=== PATIENT | female | born 1935 | race Caucasian/White ===

== ENCOUNTER → 2017-09-09 10:54 | Outpatient (CLI) | payer MEDICARE, SELFPAY ==
[2017-09-09 12:20] LABS: Absolute Lymphocyte Count 2.62 X10^3/ul (0.83-4.51); Basophil# 0.04 X10^3/uL; Basophil% 0.6 % (0-1); Eosinophil# 0.09 X10^3/uL; Eosinophils% 1.4 % (0-5); Hematocrit 40.5 % (37-47); Hemoglobin 12.9 g/dl (12.0-15.0); Lymphocyte # 2.62 X10^3/ul (4.0); Lymphocyte % 42.1 % (19-41); Mean Corp Hgb Conc 31.9 g/gl (32-36); Mean Corpuscular Hgb 29.5 pg (27.0-32.0); Mean Corpuscular Volume 92.5 fL (81-99); Mean Platelet Vol. 9.9 fl (6.2-12.0); Monocyte# 0.42 X10^3/uL; Monocyte% 6.7 % (0-10); Neutrophil # 3.04 X10^3/uL (2.7-7.7); Neutrophil % 48.9 % (47-70); Platelet Count 280 K/mm3 (150-450); RBC Distribution Width CV 14.5 % (11.6-14.6); RBC Distribution Width SD 49.1 fl (35.1-43.9); Red Blood Count 4.38 M/mm3 (4.2-5.4); White Blood Count 6.2 K/mm3 (4.4-11.0)
[2017-09-09 12:22] LABS: POSITIVE COUNT NO; POSITIVE DIFFERENTIAL NO; POSITIVE MORPHOLOGY NO
[2017-09-09 12:55] LABS: Vitamin B12 566 pg/mL (211-911)
[2017-09-09 13:02] LABS: Anion Gap 5 (5-15); BUN 13 mg/dL (7-18); BUN/Creat Ratio 24.9 RATIO (10-20); Chloride 104 mmol/L (98-107); Creatinine, Serum 0.52 mg/dL (0.55-1.02); EST Glomerular Filtration Rate 119 mL/min (>60); Est Glom Filt Rate - Afr Amer 145 mL/min (>60); Glucose 111 mg/dL (74-106); Sodium Level 137 mmol/L (136-145); T4 Free Direct 1.17 ng/dL (0.76-1.46)
== END ==
PROVIDERS: Family Provider Family Medicine; PCP Family Medicine; Visit Provider Family Medicine
DX: I10 Essential (primary) hypertension (principal); E03.9 Hypothyroidism, unspecified; R41.3 Other amnesia
CPT/HCPCS: 36415; 80048; 82607; 84439; 84443; 85025

== ENCOUNTER → 2017-09-17 14:39 | Outpatient (CLI) | payer MEDICARE, SELFPAY ==
--- NOTE | 2017-09-17 13:45 | LES_PTH ---
PATIENT: GABI RAMIREZ LOC: [facility] U#:[id number] AGE/SX: 89/F ROOM: RE09/17/[address]: Dr. Clarisse Heaton MD : 1935 BED: DIS: SPEC #: [id number] RECD: 09/18/17 11:48 STATUS: FRANCISCO BENEDICT #: [id number] HAYLEY: 09/17/17 13:[address]: Clarisse Heaton DEPT: SURGICAL PATHOLOGY RECD BY: Zenon Paz ENTERED: 09/18/17 12:46 SP TYPE: Lesion OTHR DR: Dr. Shorty Bauer MD Tissues: A - Skin of back, NOS B - Skin of arm Procedures: Surgery Specimen Level IV HEADER OPERATION: Punch biopsy; shave biopsy PRE-OP DIAGNOSIS: Suspicion of melanoma, changing nevus; cutaneous horn vs wart TISSUE SUBMITTED: A ? Mid upper back lesion, B ? Right posterior upper arm wart MICROSCOPIC DIAGNOSIS A. Mid upper back lesion, biopsy: Solar elastosis. No evidence of malignancy. B. Right posterior upper arm, excision: Fragments of verrucoid keratosis with cutaneous horn. AM:levon 09/19/17 MICROSCOPIC DESCRIPTION Slides are reviewed. GROSS DESCRIPTION A - Received in fixative is one container labeled with the patient's name and designated upper back mole. The specimen consists of an irregular fragment of larkin tissue measuring 0.2 x 0.1 x 0.1 cm. The specimen is submitted in its entirety in one cassette. B - Received in fixative is one container labeled with the patient's name and designated right upper arm. The specimen consists of an irregular fragment of light larkin soft tissue measuring 0.7 x 0.6 x 0.5 cm. The specimen is bisected and totally submitted in one cassette. / AM:levon 09/18/17 TC:5 CPT: 90511 x2
== END ==
PROVIDERS: Family Provider Family Medicine; PCP Family Medicine; Visit Provider Family Medicine
DX: B07.9 Viral wart, unspecified (principal); L98.9 Disorder of the skin and subcutaneous tissue, unspecified
CPT/HCPCS: 88305

== ENCOUNTER → 2018-01-07 14:45 | Outpatient (CLI) | payer MEDICARE, SELFPAY ==
[2018-01-07 17:36] LABS: Absolute Lymphocyte Count 2.78 X10^3/ul (0.83-4.51); Absolute Neutrophil Count 2.5 X10^3/uL (2.0-7.7); Basophil# 0.04 X10^3/uL; Basophil% 0.7 % (0-1); Eosinophil# 0.08 X10^3/uL; Eosinophils% 1.4 % (0-5); Hematocrit 39.4 % (37-47); Hemoglobin 12.5 g/dl (12.0-15.0); Lymphocyte # 2.78 X10^3/ul (4.0); Lymphocyte % 47.5 % (19-41); Mean Corp Hgb Conc 31.7 g/gl (32-36); Mean Corpuscular Hgb 29.7 pg (27.0-32.0); Mean Corpuscular Volume 93.6 fL (81-99); Mean Platelet Vol. 10.3 fl (6.2-12.0); Monocyte# 0.45 X10^3/uL; Monocyte% 7.7 % (0-10); Neutrophil # 2.49 X10^3/uL (2.7-7.7); Neutrophil % 42.5 % (47-70); Platelet Count 245 K/mm3 (150-450); RBC Distribution Width CV 14.3 % (11.6-14.6); RBC Distribution Width SD 49.1 fl (35.1-43.9); Red Blood Count 4.21 M/mm3 (4.2-5.4); White Blood Count 5.9 K/mm3 (4.4-11.0)
[2018-01-07 17:39] LABS: POSITIVE COUNT NO; POSITIVE DIFFERENTIAL NO; POSITIVE MORPHOLOGY NO
[2018-01-07 17:56] LABS: Anion Gap 6 (5-15); BUN 11 mg/dL (7-18); BUN/Creat Ratio 19.2 RATIO (10-20); Calcium,Total 8.8 mg/dL (8.5-10.1); Chloride 103 mmol/L (98-107); Creatinine, Serum 0.57 mg/dL (0.55-1.02); EST Glomerular Filtration Rate 107 mL/min (>60); Est Glom Filt Rate - Afr Amer 130 mL/min (>60); Glucose 95 mg/dL (74-106); Potassium 3.7 mmol/L (3.5-5.1); Sodium Level 138 mmol/L (136-145); Thyroid Stim Hormone (TSH) 1.85 uIU/mL (0.358-3.74)
== END ==
PROVIDERS: Family Provider Family Medicine; PCP Family Medicine; Visit Provider Family Medicine
DX: I95.2 Hypotension due to drugs (principal); E03.9 Hypothyroidism, unspecified; R53.83 Other fatigue
CPT/HCPCS: 36415; 80048; 84443; 85025

== ENCOUNTER → 2018-01-09 08:15 | Outpatient (CLI) | payer MEDICARE, SELFPAY | PROVIDERS: Family Provider Family Medicine; PCP Family Medicine; Visit Provider Family Medicine | DX: M54.5 Low back pain (principal); M48.062 Spinal stenosis, lumbar region with neurogenic claudication; Z87.39 Personal history of other diseases of the musculoskeletal system and connective tissue | CPT/HCPCS: 72110 ==

== ENCOUNTER → 2018-02-21 08:18 | Outpatient (CLI) | payer MEDICARE, SELFPAY ==
--- NOTE | 2018-02-21 08:20 | BI_ITS ---
MAMMOGRAPHY - BILATERAL SCREENING REASON FOR EXAM: Female, 82 years old. Routine annual screening examination. PERTINENT HISTORY: Non-contributory. TECHNIQUE: Digital bilateral breast tim (3D mammographic acquisition) in the CC and MLO projections. 2-D mediolateral oblique (MLO) and craniocaudad (CC) views of both breasts were obtained. CAD: Full Field Digital Mammography with Computer Added Detection was performed. COMPARISON: Comparison is made with prior study dated February 05, 2017 and January 31, 2016. FINDINGS: Breast Composition: There are scattered areas of fibroglandular density. There are no dominant masses or suspicious calcifications. Stable small benign-appearing bilateral axillary lymph nodes. No other significant abnormalities are identified. There has been no significant change since the prior study. BI/SCREENING MAMM (CAD), BILAT IMPRESSION: Stable bilateral screening mammogram. Yearly follow-up mammogram recommended. (A) ASSESSMENT CATEGORY: BIRADS Category 2: Benign. A letter regarding these results will be sent to the patient by the facility within 30 days. Approximately 10% of breast cancers are not detected by mammography. A normal mammogram should not delay biopsy of a clinically suspicious abnormality. [id number] Electronically Signed: Lemuel Martinez MD at 11:05 EDT Tel [phone], Service support ,
== END ==
PROVIDERS: Family Provider Family Medicine; PCP Family Medicine; Referring Provider Family Medicine; Visit Provider Family Medicine
DX: Z12.31 Encounter for screening mammogram for malignant neoplasm of breast (principal)
CPT/HCPCS: 77063; 77067

== ENCOUNTER → 2018-07-14 09:43 | Outpatient (CLI) | payer MEDICARE, SELFPAY ==
[2018-07-14 13:13] LABS: Anion Gap 8 (5-15); BUN 10 mg/dL (7-18); BUN/Creat Ratio 15.2 RATIO (10-20); Calcium,Total 9.1 mg/dL (8.5-10.1); Chloride 105 mmol/L (98-107); Creatinine, Serum 0.66 mg/dL (0.55-1.02); EST Glomerular Filtration Rate 92 mL/min (>60); Est Glom Filt Rate - Afr Amer 111 mL/min (>60); Glucose 101 mg/dL (74-106); Potassium 3.9 mmol/L (3.5-5.1); Sodium Level 140 mmol/L (136-145); T4 Free Direct 1.27 ng/dL (0.76-1.46); Thyroid Stim Hormone (TSH) 1.87 uIU/mL (0.358-3.74)
== END ==
PROVIDERS: Family Provider Family Medicine; PCP Family Medicine; Visit Provider Family Medicine
DX: E03.9 Hypothyroidism, unspecified (principal); I10 Essential (primary) hypertension
CPT/HCPCS: 36415; 80048; 84439; 84443

== ENCOUNTER → 2018-07-29 14:09 | Outpatient (CLI) | payer MEDICARE, SELFPAY ==
--- NOTE | 2018-07-29 14:13 | CT_ITS ---
We are attempting to reach BRIAN QUINN to discuss findings. An addendum with communication details will be sent when the communication is complete. STUDY: CT CHEST/THORAX WITH CONTRAST REASON FOR EXAM: Female, 83 years old. Follow-up nodules. RADIATION DOSAGE (If Supplied By Facility): CTDIvol = ( 9.23 ) mGy, DLP = ( 529.07 ) mGycm TECHNIQUE: Transaxial imaging was performed following intravenous administration of Isovue 300 100 IV. Multiplanar coronal and sagittal images were reformatted. Individualized dose optimization techniques were used for this CT. COMPARISON: CT chest with contrast March 08, 2017. FINDINGS: Right middle lobe nodule has increased in size to 4.0 x 2.4 x 2.9 cm soft tissue mass that remains inseparable from and distorts the anterior medial minor fissure. The medial margin of the mass is also inseparable from the right medial pleural margin/lateral pericardium. The finding is highly worrisome for malignancy. Stable 4 mm mildly irregular nodular density in the anterolateral left upper lobe on series 4 image 33. Small site of fibronodular scarring seen in the posterior periphery of the right lower lobe on series 4 image 60. Minor curvilinear anteromedial right middle lobe scarring also seen on image 62. There is no demonstrated pleural abnormality. Normal heart and pericardium. There are calcifications of the coronary arteries. Normal mediastinum. Normal hilar regions. Normal enhanced pulmonary arteries. There is stable atherosclerotic calcification of the aortic arch, proximal brachiocephalic arteries, and descending thoracic aorta. There are multi-level degenerative changes of the thoracic spine. There is a 13 degree dextroscoliosis centered at T7-8 and a slight compensatory levoscoliosis of the upper thoracic spine. Well-corticated focal invagination of the superior T11 vertebral endplate consistent with benign Schmorl's node. There is a ipbg-zz-ubvuhnwk kyphosis centered at T11. Incidental note of severe degenerative disc disease and reactive osseous sclerosis at L2-3, at the bottom of the field of view. There is a stable moderate-sized to large hiatal hernia comprising the fundus and upper body of the stomach. Marginal enhancement along a stable 1 cm subcapsular lesion in the anterolateral right lobe of liver (series 2 image 99) is consistent with hemangioma. CT/Chest WITH Contrast IMPRESSION: 1. Anteromedial right middle lobe nodule has progressed to a 4 cm soft tissue mass consistent with malignancy. This is inseparable from and distorts the anteromedial minor fissure, and is also inseparable from the medial right pleural margin. 2. There is stable minor scarring in the anterior and posterior right lung base as well as stable 4 mm nodule in the anterolateral left upper lobe. 3. Described vascular calcifications again noted. 4. Stable moderate sized to large hiatal hernia. 5. Stable 1 cm lesion in the anterolateral right lobe liver suggesting hemangioma. 6. Degenerative changes of the spine with mild upper to mid S-shaped scoliosis and mild to moderate lower thoracic kyphosis unchanged. Electronically Signed: Dylan Tong MD at 18:50 EST , Service support ,
== END ==
PROVIDERS: Family Provider Family Medicine; PCP Family Medicine; Referring Provider Family Medicine; Visit Provider Family Medicine
DX: R91.8 Other nonspecific abnormal finding of lung field (principal)
CPT/HCPCS: 71260; Q9967

== ENCOUNTER → 2018-08-05 10:47 | Outpatient (CLI) | payer MEDICARE, SELFPAY ==
[2018-08-05 09:36] VITALS: BMI 27.9
[2018-08-05 11:03] LABS: Absolute Lymphocyte Count 2.73 X10^3/ul (0.83-4.51); Absolute Neutrophil Count 3.9 X10^3/uL (2.0-7.7); Basophil# 0.05 X10^3/uL; Basophil% 0.7 % (0-1); Eosinophil# 0.14 X10^3/uL; Eosinophils% 1.9 % (0-5); Hematocrit 41.5 % (37-47); Hemoglobin 13.2 g/dl (12.0-15.0); Lymphocyte # 2.73 X10^3/ul (4.0); Lymphocyte % 37.3 % (19-41); Mean Corp Hgb Conc 31.8 g/gl (32-36); Mean Corpuscular Hgb 30.1 pg (27.0-32.0); Mean Corpuscular Volume 94.5 fL (81-99); Mean Platelet Vol. 9.7 fl (6.2-12.0); Monocyte# 0.53 X10^3/uL; Monocyte% 7.2 % (0-10); Neutrophil # 3.85 X10^3/uL (2.7-7.7); Neutrophil % 52.6 % (47-70); Platelet Count 272 K/mm3 (150-450); RBC Distribution Width CV 13.7 % (11.6-14.6); RBC Distribution Width SD 47.5 fl (35.1-43.9); Red Blood Count 4.39 M/mm3 (4.2-5.4); White Blood Count 7.3 K/mm3 (4.4-11.0)
[2018-08-05 11:07] LABS: POSITIVE COUNT NO; POSITIVE DIFFERENTIAL NO; POSITIVE MORPHOLOGY NO
[2018-08-05 11:10] LABS: Prothrombin Time (Protime)PT. 13.4 SECONDS (11.7-14.9)
[2018-08-05 11:11] LABS: Partial Thromboplast Time 28.8 Seconds (24.1-36.2)
== END ==
PROVIDERS: Family Provider Family Medicine; PCP Family Medicine; Referring Provider Internal Medicine Critical Care Medicine; Visit Provider Internal Medicine Critical Care Medicine
DX: R91.8 Other nonspecific abnormal finding of lung field (principal)
CPT/HCPCS: 36415; 85025; 85610; 85730

== ENCOUNTER → 2018-08-20 08:53 | Outpatient (CLI) | payer MEDICARE, SELFPAY ==
[2018-08-05 09:36] VITALS: BMI 27.9
[2018-08-20] VITALS (10 sets, daily range): BP systolic 118–170; BP diastolic 47–93; PULSE 74–86; RESP 13–20; TEMP 36.8; O2SAT 95–100; BMI 26.6
--- NOTE | 2018-08-20 | ASPIGT_PTH ---
PATIENT: GABI RAMIREZ LOC: CT U#:[id number] AGE/SX: 89/F ROOM: RE08/20/[address]: Dr. Kee Hyatt MD : 1935 BED: DIS: SPEC #: [id number] RECD: 08/20/18 13:04 STATUS: FRANCISCO ELLISONLuisa #: [id number] HAYLEY: 08/20/18 00:[address]: Kee Hyatt DEPT: SURGICAL PATHOLOGY RECD BY: Herman Baig ENTERED: 08/20/18 13:05 SP TYPE: ASP RAD OTHR DR: Dr. Shorty Bauer MD Tissues: Right lung, NOS Procedures: FNA Specimen Adequacy Special Stain Group II Surgery Specimen Level IV Imprint (control) HEADER OPERATION: CT-guided right lung lesion biopsy PRE-OP DIAGNOSIS: Right lung mass TISSUE SUBMITTED: Right lung MICROSCOPIC DIAGNOSIS Right lung, CT-guided core biopsy: Non-small cell carcinoma, favor squamous cell carcinoma. See comment. SJ:levon 08/21/18 COMMENT The specimen is evaluated at the time of biopsy by Dr. Yeh. Immediate Evaluation = Malignant cells present derived from non-small cell carcinoma. Immunohistochemistry ([id number]) supports the above diagnosis. Molecular studies on the tumor can be performed if clinically indicated. Please notify the laboratory if it is needed. Case has been reviewed in consultation with Dr. Hatch who concurs with the above diagnosis. IDC:AM MICROSCOPIC DESCRIPTION Slides are reviewed. GROSS DESCRIPTION Received in fixative is one container labeled with the patient's name and designated right lung, CT-guided core biopsy. The specimen consists of multiple irregular fragments of larkin soft tissue that in aggregate measure 1 x 0.1 x <0.1 cm. The specimen is totally submitted in one cassette. / JAQUELINE:levon 08/20/18 TC:0 [facility]: [address], [id number] ADDENDUM ADDENDUM ADDENDUM ADDENDUM ADDENDUM ADDENDUM ADDENDUM 02/25/2019 13:31 ADDENDUM 02/25/2019 13:31 ADDENDUM 02/25/2019 13:31 ADDENDUM 02/25/2019 13:31 ADDENDUM 02/25/2019 13:31 PD-L1 (KEYTRUDA) IMMUNOHISTOCHEMISTRY ANALYSIS FROM [facility] INTERPRETATION: High expression Tumor proportion score: 70% Please see complete report in e-chart or EMR for complete details
--- NOTE | 2018-08-20 | IMM_PTH ---
PATIENT: GABI RAMIREZ LOC: CT U#:[id number] AGE/SX: 89/F ROOM: RE08/20/[address]: Dr. Kee Hyatt MD : 1935 BED: DIS: SPEC #: [id number] RECD: 08/21/18 12:42 STATUS: FRANCISCO REQ #: [id number] HAYLEY: 08/20/18 00:[address]: Kee Hyatt DEPT: IMMUNOHISTOCHEMISTRY RECD BY: Poonam Herman ENTERED: 08/21/18 12:45 SP TYPE: IMMUNO OTHR DR: Dr. Shorty Bauer MD Tissues: Lung, NOS Procedures: RCC (add) CK20 (add) CK5-6 (add) CK7 (add) CK8 (add) HEP PAR (add) MAMM (add) MN (add) TTF1 (add) GATA3 (add) P40 (add) ER (initial) PHYSICIAN & INSTITUTION [place] [id number] SPECIMEN INFORMATION: Tissue Source: Right lung mass Clinical Info: Right lug mass Specimen Number: [id number] CPT code: 50931, 51129 x11 METHODOLOGY: Deparaffinized sections of prefer/formalin-fixed tissue or PAP/DQ stained slides are incubated with monoclonal/polyclonal antibodies/oligonucleotide probes. Localization is made via biotin free immunoperoxidase method. Appropriate controls are performed and reacted as expected. Results on target cell population are indicated in the following table: RESULTS: ANTIBODY / CLONE RESULT ER (6F11) negative MN (1E2) negative Mammaglobin (31A5) negative GATA3 (L50-823) negative CK7 (OV-TL12/30) positive CK8 (27azkxN97) positive CK20 (KS20.8) negative TTF-1 (8G7G3/1) negative HepPar (OCh1E5) negative RCC (PN-15) negative CK5-6 (D5 & 1684) positive P40 (BC28) positive These tests were developed and their performance characteristics determined by [facility]. They may not have been cleared or approved by the U.S. Food and Drug Administration. The FDA has determined that such clearance or approval is not necessary. INTERPRETATION: Right lung mass, CT-guided biopsy: Non-small cell carcinoma, favor squamous carcinoma. SJ:levon 08/21/18 Case has been reviewed in consultation with Dr. Hatch who concurs with the above diagnosis. IDC:AM
--- NOTE | 2018-08-20 08:59 | CT_ITS ---
PROCEDURE: CT GUIDED CORE NEEDLE BIOPSY OF A right upper lobe LUNG LESION INDICATION: Female, 83 years old. Mass lesion in the medial aspect of the right upper lobe. PHYSICIAN: Dr. Martinez CONSENT: Written informed consent was obtained having explained the risks, benefits and alternatives in detail with the patient who accepted the risks and agreed to proceed. Laboratory review and clinical assessment was performed. CONSCIOUS SEDATION PROTOCOL: The Drugs used were: 2 mg Versed, IV., and 50 mcg Fentanyl, IV. The sedation time was: 19 minutes. Conscious sedation was started at 10:01 AM and terminated at 10:20 AM. The conscious sedation protocol was independently monitored. RADIATION DOSAGE (If Supplied By Facility): CTDIvol = ( 18.3 ) mGy, DLP = ( 386.79 ) mGycm Individualized dose optimization techniques were used for this CT. TECHNIQUE: The patient was placed in the supine position. A noncontrast CT was performed to localize the lesion in the anterior medial aspect of the right upper lobe . The skin surface was prepped and draped in a sterile fashion. 1% lidocaine was used for local anesthesia. Using CT guidance, a 20-gauge coaxial biopsy device was advanced to the periphery of the lesion. A total of 4 core specimens were obtained. The specimens were placed in a formalin solution. A post procedure CT demonstrated no adverse sequelae or pneumothorax. The patient tolerated the procedure well without adverse event. A negative biopsy does not exclude malignancy. Further imaging or clinical followup based on patient condition and degree of clinical suspicion for malignancy. Suggest rebiopsy, if biopsy results do not match with clinical scenario. CT/Biopsy/Inj or Needle Placement IMPRESSION: 1. CT directed core needle biopsy of the right upper lobe lesion using CT image guidance with image documentation as described. Pathology results are pending. 2. Conscious Sedation protocol utilized with independent monitoring. Electronically Signed: Lemuel Martinez, at 11:30 EDT , Service support ,
[2018-08-20] MEDS: fentaNYL 100 MCG/2 ML Ampul IV (10:01)
[2018-08-20] MEDS: Midazolam 2 MG/2 ML Syringe IV (10:01)
--- NOTE | 2018-08-20 10:27 | RAD_ITS ---
STUDY: X-RAY CHEST REASON FOR EXAM: Female, 83 years old. Immediate post right lung biopsy radiograph. TECHNIQUE: AP inspiration and expiration views. COMPARISON: None. FINDINGS: Immediate postright lung biopsy radiograph. Small right apical pneumothorax. The patient is asymptomatic. RAD/Chest Insp/Exp 2 View IMPRESSION: Small right apical pneumothorax on the immediate postright lung biopsy radiograph. The patient is asymptomatic. Electronically Signed: Lemuel Martinez, at 15:52 EDT , Service support ,
--- NOTE | 2018-08-20 12:40 | RAD_ITS ---
STUDY: X-RAY CHEST REASON FOR EXAM: Female, 83 years old. 2 hour postright lung biopsy. TECHNIQUE: AP inspiration and expiration view. COMPARISON: Comparison is made with prior study done earlier today. FINDINGS: Stable small right apical pneumothorax. The patient is asymptomatic. RAD/Chest Insp/Exp 2 View IMPRESSION: Stable small right apical pneumothorax. The patient is asymptomatic Electronically Signed: Lemuel Martinez, at 15:51 EDT , Service support ,
== END ==
PROVIDERS: Family Provider Family Medicine; PCP Family Medicine; Referring Provider Internal Medicine Critical Care Medicine; Visit Provider Internal Medicine Critical Care Medicine
DX: C34.11 Malignant neoplasm of upper lobe, right bronchus or lung (principal)
CPT/HCPCS: 32405; 71046; 77012; 88172; 88305; 88307; 88313; 88341; 88342; 99156; 99157; J7040

== ENCOUNTER → 2018-08-21 09:51 | Outpatient (CLI) | payer MEDICARE, SELFPAY ==
[2018-08-05 09:36] VITALS: BMI 27.9
[2018-08-20 09:14] VITALS: BMI 26.6
--- NOTE | 2018-08-21 12:04 | PFT ---
INTRODUCTION: The patient is an 83-year-old female that presents for pulmonary function testing secondary to a diagnosis of lung mass. Respiratory therapy reports good patient effort. Bronchodilators were used during testing. INTERPRETATION: Forced expiration spirometry demonstrates the presence of a moderate large airways obstructive ventilatory defect. There was a significant response to aerosolized bronchodilators, based upon change noted in FVC. Spirograms are of relatively poor quality and terminate prior to 6 seconds, likely underestimating FVC. Body plethysmography was performed and reveals an elevated RV to 163% of predicted, indicative of underlying air trapping. Diffusing capacity by single breath CO is within normal limits at 81% of predicted. IMPRESSION: These pulmonary function studies demonstrate the presence of a partially reversible moderate large airways obstructive ventilatory defect with associated air trapping.
== END ==
PROVIDERS: Family Provider Family Medicine; PCP Family Medicine; Referring Provider Internal Medicine Critical Care Medicine; Visit Provider Internal Medicine Critical Care Medicine
DX: R91.8 Other nonspecific abnormal finding of lung field (principal)
CPT/HCPCS: 94060; 94726; 94729

== ENCOUNTER → 2018-09-08 10:13 | Outpatient (CLI) | payer MEDICARE, SELFPAY ==
[2018-08-22 10:28] VITALS: BMI 26.6
--- NOTE | 2018-09-08 11:00 | PET_ITS ---
EXAMINATION: FDG PET CT INDICATIONS: An 83-year-old female with history of carcinoma of the lung presenting for initial staging examination. COMPARISON EXAMINATION: CT of the chest report dated 07/29/18. INDEX LESION SIZE SUV INTERPRETATION Right lower anteromedial hemithorax pulmonary parenchyma, right middle lobe 40.5 mm x 23.6 mm (frame 173) 7.6 Fulfills quantitative criteria for viable neoplasm NON-INDEX LESION SIZE SUV INTERPRETATION Left upper abdomen 1.5 Appears contiguous to splenule visualization TECHNIQUE: Following the intravenous administration of 13.85 mCi of F-18 deoxyglucose via the left forearm, multiplanar image acquisitions of the neck, chest, abdomen and pelvis to level of mid thigh, obtained at one hour post radiopharmaceutical administration contemporaneously interpreted with the current CT of the neck, chest, abdomen and pelvis to level of mid thigh, dated 09/08/[address] of the chest report dated 07/29/18 reveal: SERUM GLUCOSE LEVEL: 119 mg/dl. HEIGHT: 64 inches. WEIGHT: 155 lbs. FINDINGS: 1. Increased glucose metabolism is defined in the right lower anteromedial hemithorax pulmonary parenchyma, right middle lobe generating a calculated maximum standard uptake value is 7.6. The maximal axial diameter of the corresponding parenchymal density-mass on review of CT of the chest dated 09/08/18 is 40.5 mm (transverse) x 23.6 mm (AP). 2. Normal physiologic distribution of the radiopharmaceutical is apparent in the hepatic (3.9) and splenic parenchyma, both renal units, bladder and visualized intestinal tract. There is uniform distribution of the radiopharmaceutical concentration defined in the visualized cerebellar hemispheres and cerebral cortical structures.? Diffuse intestinal tract activity is noted throughout all four quadrants of the abdominal-pelvic retroperitoneum, mesentery consistent with normal physiologic distribution of the radiopharmaceutical. A subtle focus of increased glucose concentration is noted in the left upper abdomen with a calculated maximum standard uptake value of 1.5 and appears to represent a visualized splenule. Enhanced radiopharmaceutical concentration is noted in the anterior neck, laryngeal structure contiguous to the cricopharyngeus musculature most consistent with physiologic distribution of the radiotracer. Pertinent CT findings are as follows. CHEST: Atherosclerotic calcification is defined in the thoracic aorta without evidence of dilatation, aneurysm formation. Coronary arterial calcification is observed. A prominent hiatal hernia is defined. Subcentimeter bilateral axillary soft tissue densities are non-glucose avid. There are no parenchymal densities-nodules defined in the right-left hemithorax demonstrating discernible increased glucose metabolism. ABDOMEN AND PELVIS: Cholelithiasis is defined. Atherosclerotic calcification is defined in the abdominal aorta without evidence of dilatation, aneurysm formation. Pelvic arterial calcification is observed. Right-left inguinal soft tissue densities are ametabolic. Calcification appears evident in the region of the lower pelvis-urinary bladder, which may represent vesiculate calculus. SKELETAL: Degenerative changes defined in the cervical, thoracic and lumbar spine demonstrate no evidence for glucose hypermetabolism. Orthopedic hardware placement is defined in the lower lumbar spine commensurate with spinal fusion operative intervention. PET/PET/CT Tumor Base -Thigh Init IMPRESSION: 1. ABNORMAL EXAMINATION INDICATIVE OF MALIGNANT-VIABLE NEOPLASM. 2. Increased FDG concentration noted in the right lower anteromedial hemithorax pulmonary parenchyma, right middle lobe fulfills quantitative criteria for viable neoplasm. (Randall et al, Annals of Internal Medicine, 138:724, 2003). 3. Facilitated glucose metabolism noted in the left upper abdomen appears to correspond to splenule visualization. 4. No other quantitatively significant hypermetabolic abnormalities are noted. There is no definitive scintigraphic evidence of distant metastatic disease. Electronic Signature Allen De León D.O. Electronically Signed: Allen De León DO at 20:48 EDT Tel , Service support ,
== END ==
PROVIDERS: Family Provider Family Medicine; PCP Family Medicine; Referring Provider Internal Medicine Critical Care Medicine; Visit Provider Internal Medicine Critical Care Medicine
DX: C34.11 Malignant neoplasm of upper lobe, right bronchus or lung (principal)
CPT/HCPCS: 78815; A9552

== ENCOUNTER → 2018-10-23 13:30 | Outpatient (CLI) | payer MEDICARE, SELFPAY ==
[2018-09-16 13:06] VITALS: BMI 29.0
[2018-09-17 09:04] VITALS: BMI 29.7
--- NOTE | 2018-10-23 | IMM_PTH ---
PATIENT: GABI RAMIREZ LOC: [facility] U#:[id number] AGE/SX: 89/F ROOM: RE10/23/[address]: Dr. Kiara Mcrae MD : 1935 BED: DIS: SPEC #: [id number] RECD: 10/24/18 13:11 STATUS: FRANCISCO REQ #: [id number] HALYEY: 10/23/18 00:[address]: Kiara Mcrae DEPT: IMMUNOHISTOCHEMISTRY RECD BY: Poonam Herman ENTERED: 10/24/18 13:21 SP TYPE: IMMUNO OTHR DR: Dr. Shorty Bauer MD Tissues: Vulva, NOS Procedures: NAPSIN A (add) CA-125 (add) CEA (add) CK14 (add) CK19 (add) CK20 (add) CK5-6 (add) CK7 (add) CK8 (add) ALENA (add) HER2 SAUNDRA (add) KI-67 (add) MAMM (add) P16 (add) P53 (add) DE (add) TTF1 (add) Vimentin (add) 34BE12 (add) Pankeratin (add) MELAN-A (add) GATA3 (add) P40 (add) ER (initial) S-100 (add) PHYSICIAN & [place] [id number] SPECIMEN INFORMATION: Tissue Source: Vulva, punch biopsy Clinical Info: Vulvar subcutaneous tumor Specimen Number: [id number] CPT code: 11858, 15526 x24 METHODOLOGY: Deparaffinized sections of prefer/formalin-fixed tissue or PAP/DQ stained slides are incubated with monoclonal/polyclonal antibodies/oligonucleotide probes. Localization is made via biotin free immunoperoxidase method. Appropriate controls are performed and reacted as expected. Results on target cell population are indicated in the following table: RESULTS: ANTIBODY / CLONE RESULT ER (6F11) negative DE (1E2) negative Her-2neu (CB11) negative Mammaglobin (31A5) * GATA3 (L50-823) positive, dim AE1-3 (AE1/AE3/PCK26) positive CK7 (OV-TL12/30) positive CK8 (97yiwbI48) positive CK20 (KS20.8) negative 34BE12 (34BE12) positive P40 (BC28) negative Vimentin (V9) positive, strong S-100 (4C4.9) negative Melan A (A103) negative CK19 (A53-B/A2.26) positive TTF-1 (8G7G3/1) negative Napsin A (Rabbit Polyclonal) negative CK5-6 (D5 & 1684) negative CK14 (LL002) negative P16 (E6H4) positive, strong, block-like Ki-67 (30-9) positive, >50% CEA (11-7/TF-3HB-1) negative ALENA (E29) positive P53 (DO-7) positive, >90% CA125 (OC125) positive * indeterminate These tests were developed and their performance characteristics determined by [facility]. They may not have been cleared or approved by the U.S. Food and Drug Administration. The FDA has determined that such clearance or approval is not necessary. INTERPRETATION: Vulva, punch biopsy: Metastatic poorly differentiated carcinoma. AM:levon 10/27/18 Comment: Squamoid differentiation is not present. A mixed immunohistochemical profile is noted. A definitive primary cannot be determined. Clinical correlation is necessary.
--- NOTE | 2018-10-23 10:30 | VUL_PTH ---
PATIENT: GABI RAMIREZ LOC: [facility] U#:[id number] AGE/SX: 89/F ROOM: RE10/23/[address]: Dr. Kiara Mcrae MD : 1935 BED: DIS: SPEC #: [id number] RECD: 10/23/18 13:57 STATUS: FRANCISCO RELuisa #: [id number] HAYLEY: 10/23/18 10:[address]: Kiara Mcrae DEPT: SURGICAL PATHOLOGY RECD BY: Herman Baig ENTERED: 10/23/18 14:33 SP TYPE: VULVA BX OTHR DR: Dr. Shorty Bauer MD Tissues: A - Vulva, NOS Procedures: Special Stain Group II Mucicarmine Stain (control) Surgery Specimen Level IV HEADER OPERATION: Punch biopsy PRE-OP DIAGNOSIS: Vulvar subcutaneous tumor TISSUE SUBMITTED: Punch biopsy MICROSCOPIC DIAGNOSIS Vulva, biopsy: Metastatic poorly differentiated carcinoma. See microscopic description and comment. AM:levon 10/24/18 COMMENT Immunohistochemistry ([id number]) supports the above diagnosis. A definitive primary cannot be determined. Squamoid features are not appreciated. Mucin stain is focally positive. Matched control is appropriate. Clinical correlation is suggested. This case was reviewed and diagnosis discussed with Dr. De La Rosa on 10/29/18 at 9:30 a.m. MICROSCOPIC DESCRIPTION Slides are reviewed. The tumor is deep in the subcutaneous tissue. No infiltration to the overlying epidermis is identified. There is no evidence of vascular or angiolymphatic invasion. Clinical correlation is suggested. GROSS DESCRIPTION Received in fixative is one container labeled with the patient's name and designated punch biopsy. The specimen consists of two cores of light larkin soft tissue. Each core has an average length of 0.8 cm and a maximal diameter of 0.2 cm. The specimen is submitted in its entirety in one cassette. / AM:levon 10/23/18 TC:0 CPT: 87710, 48790
== END ==
PROVIDERS: Family Provider Family Medicine; PCP Family Medicine; Referring Provider Obstetrics & Gynecology; Visit Provider Obstetrics & Gynecology
DX: N90.89 Other specified noninflammatory disorders of vulva and perineum (principal)
CPT/HCPCS: 88305

== ENCOUNTER → 2019-01-05 09:35 | Outpatient (CLI) | payer MEDICARE, SELFPAY ==
[2018-09-16 13:06] VITALS: BMI 29.0
[2018-09-17 09:04] VITALS: BMI 29.7
[2019-01-05 12:30] LABS: Absolute Lymphocyte Count 1.02 X10^3/uL (0.83-4.51); Absolute Neutrophil Count 4.5 X10^3/uL (2.0-7.7); Basophil# 0.06 X10^3/uL; Basophil% 0.9 % (0-1); Eosinophil# 0.24 X10^3/uL; Eosinophils% 3.7 % (0-5); Hematocrit 36.7 % (37-47); Hemoglobin 11.6 g/dL (12.0-15.0); Lymphocyte # 1.02 X10^3/ul (4.0); Lymphocyte % 15.9 % (19-41); Mean Corp Hgb Conc 31.6 g/dL (32-36); Mean Corpuscular Hgb 29.3 pg (27.0-32.0); Mean Corpuscular Volume 92.7 fL (81-99); Mean Platelet Vol. 10.2 fl (6.2-12.0); Monocyte# 0.56 X10^3/uL; Monocyte% 8.7 % (0-10); NRBC Flagged by Analyzer 0 % (0-5); Neutrophil # 4.52 X10^3/uL (2.7-7.7); Neutrophil % 70.3 % (47-70); Platelet Count 245 K/mm3 (150-450); RBC Distribution Width CV 13.7 % (11.6-14.6); RBC Distribution Width SD 46.8 fl (35.1-43.9); Red Blood Count 3.96 M/mm3 (4.2-5.4); White Blood Count 6.4 K/mm3 (4.4-11.0)
[2019-01-05 13:10] LABS: ALB/GLOB Ratio 0.9 RATIO (0.9-2.4); AST(SGOT) 13 U/L (15-37); Alanine Aminotransfer ALT/SGPT 17 U/L (13-56); Albumin, Serum 3.1 g/dL (3.2-5.0); Alkaline Phosphatase 91 U/L (45-117); Anion Gap 9 (5-15); BUN 11 mg/dL (7-18); BUN/Creat Ratio 15.8 RATIO (10-20); Calcium,Total 8.8 mg/dL (8.5-10.1); Chloride 104 mmol/L (98-107); EST Glomerular Filtration Rate 86 mL/min (>60); Est Glom Filt Rate - Afr Amer 104 mL/min (>60); Globulin 3.6 g/dL (2.2-4.2); Glucose 132 mg/dL (74-106); Lipase 42 U/L (73-393); Protein, Total 6.7 g/dL (6.4-8.2); Sodium Level 138 mmol/L (136-145); T4 Free Direct 1.43 ng/dL (0.76-1.46); Thyroid Stim Hormone (TSH) 2.35 uIU/mL (0.358-3.74)
== END ==
PROVIDERS: PCP Family Medicine; Visit Provider Family Medicine
DX: R10.9 Unspecified abdominal pain (principal); R11.0 Nausea; C34.91 Malignant neoplasm of unspecified part of right bronchus or lung; E03.9 Hypothyroidism, unspecified
CPT/HCPCS: 36415; 80053; 83690; 84439; 84443; 85025

== ENCOUNTER → 2019-01-23 12:54 | Outpatient (CLI) | payer MEDICARE, SELFPAY ==
[2018-09-16 13:06] VITALS: BMI 29.0
[2018-09-17 09:04] VITALS: BMI 29.7
--- NOTE | 2019-01-23 12:57 | CT_ITS ---
STUDY: CT CHEST WITHOUT CONTRAST REASON FOR EXAM: Female, 83 years old. Follow-up lung cancer. RADIATION DOSAGE (If Supplied By Facility): CTDIvol = ( 10.26 ) mGy, DLP = ( 348.52 ) mGycm TECHNIQUE: Transaxial imaging was performed without the administration of intravenous contrast material. Multiplanar coronal and sagittal images were reformatted. Individualized dose optimization techniques were used for this CT. COMPARISON: CT of the chest, July 29, 2018. FINDINGS: The lungs are hyperexpanded. There is complete collapse of the right middle lobe appears to be masslike area peripherally measuring 4.1 x 2.2 x 1.5 cm in size. There is no demonstrated pleural abnormality. Normal heart and pericardium. There are calcifications of the coronary arteries. There is a 1.3 x 1.1 x 1.1 cm soft tissue density in the anterior mediastinum. No other significant mediastinal or hilar lymphadenopathy is noted. Normal unenhanced pulmonary arteries. The aorta is tortuous and atherosclerotic but without aneurysm. There are multi-level degenerative changes of the thoracic spine. There is a large retrocardiac hiatal hernia. There is enlargement of the left adrenal gland with surrounding stranding. There is evidence of a left renal artery stent. The abdomen appears otherwise grossly normal. CT/Chest without Contrast IMPRESSION: 1. Soft tissue mass in the anterior right middle lobe with complete collapse of the remainder of the right middle lobe. 2. Emphysematous changes of lungs without other mass or infiltrate. 3. Anterior mediastinal nodule not present on the previous study. 4. Large hiatal hernia. 5. Enlargement of the left adrenal gland with associated stranding not noted on the previous study. Electronically Signed: Taye Schreiber DO at 22:08 EDT Tel [phone], Service support ,
== END ==
PROVIDERS: Family Provider Family Medicine; PCP Family Medicine; Referring Provider Student in an Organized Health Care Education/Training Program; Visit Provider Student in an Organized Health Care Education/Training Program
DX: C34.90 Malignant neoplasm of unspecified part of unspecified bronchus or lung (principal)
CPT/HCPCS: 71250

== ENCOUNTER → 2019-02-06 10:51 | Outpatient (CLI) | payer MEDICARE, SELFPAY ==
[2018-09-16 13:06] VITALS: BMI 29.0
[2018-09-17 09:04] VITALS: BMI 29.7
--- NOTE | 2019-02-06 11:30 | MRI_ITS ---
STUDY: MRI BRAIN WITH AND WITHOUT CONTRAST REASON FOR EXAM: Female, 83 years old. Headache TECHNIQUE: Standardized multiplanar fat and water weighted pulse sequences were obtained. 15 IV Dotarem was administered for the contrast portion of the examination. COMPARISON: None. FINDINGS: There is moderate cerebral atrophy with widening of the extra-axial spaces and ventricular dilatation. There are multiple white matter hyperintensities, distributed throughout the deep white matter tracts of the cerebral hemispheres, consistent with moderate chronic white matter ischemic changes. There is no evidence for recent intracranial ischemia or other cause of cytotoxic edema on diffusion weighted imaging (DWI). Normal T2* images of the brain without demonstrated susceptibility artifact. There is no demonstrated hemosiderin stain. Normal bilateral basal ganglia. Normal thalami. There is no extra-axial fluid accumulation. Normal flow voids within the major intracranial circulation suggesting patency by spin echo criteria. Normal venous enhancement. There is no enhancing intra-axial or extra-axial abnormality. Normal sella turcica, pituitary gland, infundibular stalk, optic chiasm and hypothalamus. Normal tectal plate and pineal gland. Normal midbrain, dominick and medulla. Normal cerebellum. Normal basal cisterns. Normal bilateral temporal bones. Normal bilateral internal auditory canals. There are bilateral ocular lens implants with otherwise normal intraorbital contents. Normal visualized paranasal sinuses. Normal calvarium and skull base. Normal visualized soft tissue structures. Normal visualized upper cervical spine. MRI/Brain W/WO Contrast IMPRESSION: Involutional changes of the brain, as described above. No MR evidence of metastatic disease. Electronically Signed: Allen Miller MD at 12:46 EDT Tel , Service support ,
== END ==
PROVIDERS: Family Provider Family Medicine; PCP Family Medicine; Referring Provider Student in an Organized Health Care Education/Training Program; Visit Provider Student in an Organized Health Care Education/Training Program
DX: R51 Headache (principal)
CPT/HCPCS: 70553; A9575

== ENCOUNTER → 2019-02-23 12:39 | Outpatient (CLI) | payer MEDICARE, SELFPAY ==
[2018-09-16 13:06] VITALS: BMI 29.0
[2018-09-17 09:04] VITALS: BMI 29.7
[2019-02-12 10:05] VITALS: BMI 28.3
--- NOTE | 2019-02-23 12:41 | RAD_ITS ---
STUDY: SWALLOWING STUDY REASON FOR EXAM: Female, 83 years old. Dysphagia. TECHNIQUE: The examination was performed with Speech Pathology in attendance. Under fluoroscopic observation, the patient ingested thin barium, thick barium, barium pudding, and barium coated cracker. FLUOROSCOPY TIME: 2:57 minutes/seconds. 2708 fluoroscopic images were obtained. RADIOLOGIST INVOLVEMENT: Radiologist was present and providing direct supervision. COMPARISON: None. FINDINGS: The following was observed during swallowing of the various mixtures of barium: Thin Barium: Penetration and intermittent silent aspiration with ingestion of thin liquids. This improves with the chin tuck maneuver. This improves with the chin to maneuver. Thick Barium: There was no evidence of aspiration or laryngeal penetration. Barium Pudding: There was no evidence of aspiration or laryngeal penetration. Large amount of residual is seen in the piriform sinuses and vallecula. Hypertrophy of the cricopharyngeus muscle. RAD/Swallowing Function w/Video IMPRESSION: Penetration and intermittent silent aspiration with ingestion of thin liquids. Large amount of residual in the vallecula and piriform sinuses with ingestion of pudding. Hypertrophy of the cricopharyngeus muscle. The swallow study findings were discussed with the patient by the speech pathologist at the conclusion of the examination. Please see speech pathology report for more information and recommendations. Electronically Signed: Lemuel Martinez, at 14:07 EDT , Service support ,
--- NOTE | 2019-02-23 13:00 | SP.MBSS_ITS ---
PRIMARY / SECONDARY DIAGNOSIS: dysphagia (R13.10) REFERRING PHYSICIAN: Dr. Luis Enrique De La Rosa DO, MS CURRENT DIET: regular textures, thin liquids DENTITION: edentulous MENTAL STATUS: sufficient for participation. 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 PREVIOUS MODIFIED BARIUM SWALLOW STUDY: None. ADDITIONAL OBJECTIVE ASSESSMENT RESULTS: 05/05/2013 barium swallow study revealed a moderate-sized hiatal hernia with gastroesophageal reflux. ASSESSMENT PARAMETERS: The Patient participated in a Modified Barium Swallow (MBS) study on 02/23/2019. Dr. Martinez was the radiologist present for this evaluation. This study was recorded in the lateral view and images were sent to PACs for storage. Scoring was completed through each trial using the 8-point Penetration-Aspiration Scale (PAS) and Videofluoroscopic Scale Score (VSS), and summarized via the Modified Barium Swallow Impairment Profile (MBSImP) and the Bolus Residue Scale (BRS), with severity scoring through the Dysphagia Severity Rating Scale (DSRS) and the Swallowing Performance Scale (PSP), and recommended diet textures through the International Dysphagia Diet Standardisation Initiative (IDDSI). RESULTS OF THE EVALUATION: The Patient presents with moderate oropharyngeal dysphagia (DSRS: 4; SPS: 5) with grade I post prandial transient aspiration of thin liquids and clinically significant pharyngeal phase dysmotility likely secondary to a combination of factors, to include carcinoma of the right middle lobe status post irradiation and secondary presbyphagia. OBJECTIVE ASSESSMENT OF SWALLOW FUNCTION (QUANTITATIVE ? PER TRIAL): PENETRATION / ASPIRATION SCALE (MARQUEZ): 1 = does not enter airway 2 = enters airway/above vocal folds/ejected 3 = enters airway/above vocal folds/not ejected 4 = enters airway/contacts vocal folds/ejected 5 = enters airway/contacts vocal folds/not ejected 6 = enters airway/below vocal folds/ejected 7 = enters airway/below vocal folds/not ejected despite effort 8 = enters airway/below vocal folds/no effort VIDEOFLOROSCOPIC SCALE SCORE (MARQUEZ): Grade I = aspiration of material that has penetrated into the laryngeal vestibule, intact cough reflex Grade II = aspiration < 10 % of the bolus, intact cough reflex Grade III = aspiration of < 10 % of the bolus, reduced cough reflex or aspiration of > 10 % of the bolus, intact cough reflex Grade IV = aspiration of > 10 % of the bolus, reduced cough reflex PENETRATION / ASPIRATION SCALE (SCORE) WITH VIDEOFLOROSCOPIC SCALE SCORE: Thin liquid - 5 mL tsp.: 1 Thin liquids via cup (single sip): 1 Thin liquids via cup (single sip): 1 Thin liquids via cup (single sip): 1 Thin liquids via straw (sequential swallows): 5, 6* ? Grade I Pudding via spoon: 1 Thin liquids via straw (chin tuck): 1 Thin liquids via straw (chin tuck): 1 Thin liquids via straw (chin tuck): 3, 5* Thin liquids via straw (chin tuck): 1, 5* Thin liquids via straw (chin tuck): 1, 3* * denotes post prandial occurrence OBJECTIVE ASSESSMENT OF SWALLOW FUNCTION (QUANTITATIVE ? AGGREGATE): MODIFIED BARIUM SWALLOW IMPAIRMENT PROFILE (MBSImP) LABIAL SEAL: 1 (of 4) interlabial escape, no progression TONGUE CONTROL: 1 (of 3) lateral buccal cavity / floor of mouth BOLUS PREPARATION / MASTICATION: 0 (of 3) timely and efficient BOLUS TRANSPORT / LINGUAL MOTION: 0 (of 4) brisk tongue motion ORAL RESIDUE: 2 (of 4) residue collection on oral structures INITIATION OF PHARYNGEAL SWALLOW: 3 (of 4) pyriforms SOFT PALATE ELEVATION: 0 (of 4) no bolus between soft palate & pharyngeal wall LARYNGEAL ELEVATION: 2 (of 3) minimal superior movement / approximation ANTERIOR HYOID EXCURSION: 1 (of 2) partial movement EPIGLOTTIC MOVEMENT: 1 (of 2) partial inversion LARYNGEAL VESTIBULE CLOSURE: 1 (of 2) incomplete closure PHARYNGEAL STRIPPING WAVE: 0 (of 2) present / complete PE SEGMENT OPENIN (of 3) partial distension / duration / obstruction TONGUE BASE RETRACTION: 3 (of 4) wide column of contrast PHARYNGEAL RESIDUE: 3 (of 4) majority of contrast remaining ESOPHAGEAL BOLUS CLEARANCE: could not view BOLUS RESIDUE SCALE (BRS): 4 (of 6) residue in valleculae and piriform sinus DYSPHAGIA SEVERITY RATING SCALE (DSRS): 4 (moderate) SWALLOWING PERFORMANCE SCALE (SPS): 5 (moderate) OBJECTIVE ASSESSMENT OF SWALLOW FUNCTION (QUALITATIVE): ORAL PREPARATORY PHASE: solid textures held due to concerns for safety when considering the significance of pharyngeal phase dysmotility; sufficient anterior oral containment during presentation / manipulation; preserved management of breathing / bolus formation without disrupted E ? S ? E pattern. ORAL TRANSITIONAL PHASE: sufficient bolus transportation; no lingual discoordination (no tremor / undulations); overall sufficient oral clearance; sufficient oral containment across textures. PHARYNGEAL PHASE: mild pharyngeal phase delay / dyssynchrony with variations in bolus dwell time (1-2 seconds) contributing to prandial penetration of thin liquids; reduced hyolaryngeal excursion and duration with insufficient laryngeal vestibule pressure generated to expel penetrated material; significant pharyngeal dysmotility attributed to reductions across the pharyngeal constrictors, reduction in epiglottic deflection and upper esophageal segment dilation that is possibly linked to the reduction in anterior hyoid excursion, with upwards of 75% of the bolus retained within the valleculae and hyperpharyngeal spaces during trials of pudding thickened textures; no signs of velopharyngeal impairments. ESOPHAGEAL PHASE: no obvious esophageal phase abnormalities observed. CONTRIBUTING / COMPLICATING FACTORS AND NOTABLE FINDINGS: weak cough in response to tracheobronchial aspiration (dystussia); prominent cricopharyngeal bar located at the C6-C7 level, minimal to no impact on pharyngeal motility or pharyngeal timing; RESPONSE TO STRATEGIES: all deficits managed successfully with reduction in bolus rate / volume adjustments, diet texture / viscosity adjustments, execution of multiple swallows with each bolus, alteration between solids and liquids, and execution of the chin tuck posture, DYSPHAGIA ASSOCIATED MEDICAL CONSIDERATIONS / INTERVENTION CONSIDERATIONS: The Patient was noted to transiently aspirate with thin liquids (contrast briefly appearing below the vocal folds, though subsequently expelled back to the laryngeal vestibule during the act of deglutition). Recommend a repeat modified barium swallow study within 4 - 8 weeks (if clinically appropriate) if the Patient demonstrates independent completion of oropharyngeal swallow exercises outside of intervention sessions. I would consider the Patient to be at a higher risk of aspiration related medical complications / aspiration pneumonia / aspiration related pulmonary syndrome secondary to her recent irradiation therapy, presence of dysphagia, extensive pharyngeal phase impairment, potential for tracheobronchial aspiration of more dense viscosities, suboptimal oral status, advanced age, lower functional status, presence of malnutrition, and higher prevalence of comorbidities. I would consider this Patient to be a high risk for malnutrition and dehydration due to the Patients advanced age, reported significant amount of weight lost over the last 3 months (~25 lbs.), and the significance of dysphagia and motility based deficits. The Patient may require intervention to reduce the risk of malnutrition, with considerations for food enrichment and oral nutritional supplementation. Would recommend a nutritional services consultation due to the Patient and Patients caregiver concern associated with her ability to consistently and safely consume enough caloric intake to satisfy daily needs. INTERVENTION RECOMMENDATIONS AND CONSIDERATIONS: The Patient requires intensive skilled speech-language intervention targeting diet texture management and training / implementation of recommended compensatory strategies; training and implementation of recommended oropharyngeal strengthening exercises to facilitate improved oropharyngeal strength and coordination; and Patient / caregiver training targeting meal preparation / thickened liquid preparation POST ASSESSMENT EDUCATION: Results and recommendations were discussed with the Patient and Patients family immediately following MBS completion, with the Patient and Patients family verbalizing understanding and agreement with all recommendations and education provided. I provided brief overview of signs and symptoms of aspiration, with recommendations for the Patient to further discuss symptoms with the Patients primary care provider. DIET TEXTURE RECOMMENDATIONS: Will recommend a pureed textured (IDDSI: 4), thin liquid diet (IDDSI: 0) diet RECOMMENDED COMPENSATORY STRATEGIES: Chin tuck, reduced bolus volume / rate of ingestion, consider cutting tougher textures into bite sized pieces, liquid chaser following semisolids, seated upright at 90 degrees during PO intake, remain upright for 30-60 minutes post meal (GERD precaution), medications crushed in purees. IMAGE COUNT: [id number] Herman Gates M.A., YANDY-DIRECTOR REGULATORY COMPLIANCE, CBIS MBSImP Certified, LSVT Certified [facility] Speech-Language Pathology Department [email or web address]
== END ==
PROVIDERS: Family Provider Family Medicine; PCP Family Medicine; Referring Provider Student in an Organized Health Care Education/Training Program; Visit Provider Student in an Organized Health Care Education/Training Program
DX: R13.10 Dysphagia, unspecified (principal)
CPT/HCPCS: 74230; 92611

== ENCOUNTER 2019-03-02 14:00 | Outpatient (RCR) | payer MEDICARE, SELFPAY ==
[2018-09-16 13:06] VITALS: BMI 29.0
[2019-02-12 10:05] VITALS: BMI 28.3
--- NOTE | 2019-02-27 08:55 | SOAP_ITS ---
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 The Patient reports developing dysphagia with solid ingestion initially appearing towards the latter portions of irradiation, with a notable uptake in significance over the last few months with occasional regurgitation; She further reports recently experiencing occasional nasal regurgitation, though this is much less frequent. She reports intermittent globus sensation with occasional bolus status of solid textures that returns to the oral cavity without acidic tasting qualities She reports a rather significant weight loss over the last few months, though her records detail a milder decline at best (164 lbs. on 09/11/2018? 160 lbs. on 02/12/2019). She reports gradual declines in appetite in conjunction with early satiety. She reports mild dysgeusia (abnormal / unpleasant taste); she denies hyposmia; reports mild xerostomia; she denies the presence of diurnal sialorrhea (though does report occasional nocturnal sialorrhea). She denies suboptimal intake behaviors (tachyphagia, bolus bolting, or aerophagia). She denies any current or previous issues with aspiration related pulmonary complications, to include pneumonia, bronchitis, or unexplained asthma symptoms; The Patient is ambulatory in shorter distances with use of assistive devices (cane, wheelchair for longer distances); no difficulties with posture maintenance; appears well nourished; is somewhat dependent for all ADLs and IADLs; is not vocationally active. 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 PREVIOUS MODIFIED BARIUM SWALLOW STUDY: 02/23/2019 MBS revealed moderate oropharyngeal dysphagia (DSRS: 4; SPS: 5) with grade I post prandial transient aspiration of thin liquids and clinically significant pharyngeal phase dysmotility likely secondary to a combination of factors, to include carcinoma of the right middle lobe status post irradiation and secondary presbyphagia. ADDITIONAL OBJECTIVE ASSESSMENT RESULTS: 02/06/2019 MRI revealed involutional changes of the brain; no evidence of metastatic disease. 05/05/2013 barium swallow study revealed a moderate-sized hiatal hernia with gastroesophageal reflux. ORAL MOTOR / MODIFIED CRANIAL NERVE ASSESSMENT: CNV, VII, IX, X, and XII appear grossly intact. Upper / lower dentures in place, poor fit; there appears to be localized irritation and suspected blistering along the posterior portion of the anterior maxillary arch; the Patient further reports intermittent ?burning sensations? possibly attributed to this location. There is a slight geographic lingual appearance with scattered enlarged papillae located on the posterior lingual surface. Mild dystussia. Mild to moderate hoarse vocal quality. No identified or reported signs or symptoms of trismus, FUNCTIONAL STATUS ASSESSMENT RESULTS: Donahue Index of Ware in Activities of Daily Livin/6 Bathin Dressin Toiletin Transferrin Continence: 1 Feedin Nura ? Kevin Instrumental Activities of Daily Living Scale (IADL): 11/01 Ability to Use Telephone: 1 Shoppin Food Preparation: 1 Housekeepin Laundry: 0 Mode of Transportation: 1 Responsibility for Own Medications: 1 Ability to Handle Finances: 1 Functional Assessment of Cancer Therapy ? Lung (FACT L): 71 Physical Well-Bein Social / Family Well- Bein Emotional Well-Bein Functional Well-Bein Additional Concerns: 15 Functional Ambulation Category (FAC): 4 (independent - level surfaces only) SUPPLEMENTARY DYSPHAGIA ASSESSMENT RESULTS (QUANTITATIVE): Reflux Symptom Index (RSI): 38 (>13 may indicate significant reflux) Sialorrhea Scoring Scale (SSS): 06/04 (dry, never drools) [facility] Xerostomia Questionnaire: 41/80* Scale of Subjective Total Taste Acuity (STTA): Grade II (moderate loss) Eating Assessment Tool ? 10 (EAT-10): 32 (>15 or higher 2.4x more likely to aspirate) CLINICAL ASSESSMENT OF SWALLOW FUNCTION (QUANTITATIVE): Repetitive Saliva Swallowing Test (RSST): Pass 1oz (30mL) Water Swallowing Test (1oz WST): Abnormal ? 3 (of 5) 3oz (90mL) Water Swallow Test (3oz WST): Abnormal; coughing after deglutition Shahid Assessment of Swallowing Ability ? Cancer (MASA-C): 176 (moderate) MASA-C Dysphagia Risk Rating: Definite; strong evidence for disorder Swallowing Performance Scale (PSP): 5 (moderate) CLINICAL ASSESSMENT OF SWALLOW FUNCTION (QUALITATIVE): ORAL PREPARATORY PHASE: solid textures held due to concerns for safety when considering the significance of pharyngeal phase dysmotility identified under fluoroscopy; sufficient anterior oral containment during presentation / manipulation; preserved management of breathing / bolus formation without disrupted E ? S ? E pattern. ORAL TRANSITIONAL PHASE: no signs of transitional incompetence; no signs of bolus consolidation impairments; no signs or symptoms of premature posterior bolus loss; PHARYNGEAL PHASE: reduced hyolaryngeal excursion upon digital palpation suggestive of suboptimal laryngeal vestibule closure / pressure / duration (verified under fluoroscopy); no obvious findings suggestive of pharyngeal phase delay / dyssynchrony (mild findings under fluoroscopy); occasional multiple swallows during trials of smaller / rather manageable bolus volumes with self-reported sensations of pharyngeal stasis) suggestive of pharyngeal dysmotility, (verified under fluoroscopy); self-reported sensations of nasoregurgitation of thin liquids suggestive of velopharyngeal insufficiency; post prandial weak coughing during ingestion of thin liquids without execution of he chin tuck posture indicative of overt aspiration (verified under fluoroscopy); no further signs or symptoms of penetration / aspiration throughout trials. PHARYNGEAL PHASE: mild pharyngeal phase delay / dyssynchrony with variations in bolus dwell time (1-2 seconds) contributing to prandial penetration of thin liquids; reduced hyolaryngeal excursion and duration with insufficient laryngeal vestibule pressure generated to expel penetrated material; significant pharyngeal dysmotility attributed to reductions across the pharyngeal constrictors, reduction in epiglottic deflection and upper esophageal segment dilation that is possibly linked to the reduction in anterior hyoid excursion, with upwards of 75% of the bolus retained within the valleculae and hyperpharyngeal spaces during trials of pudding thickened textures; no signs of velopharyngeal impairments. ESOPHAGEAL PHASE: esophageal phase appears unremarkable CONTRIBUTING / COMPLICATING FACTORS AND NOTABLE FINDINGS: weak cough in response to tracheobronchial aspiration (dystussia) identified under fluoroscopy. RESPONSE TO STRATEGIES: all deficits managed successfully with reduction in bolus rate / volume adjustments, diet texture / viscosity adjustments, execution of multiple swallows with each bolus, alteration between solids and liquids, and execution of the chin tuck posture, RESULTS OF THE EVALUATION: The Patient presents with moderate oropharyngeal dysphagia likely secondary to a combination of factors, to include carcinoma of the right middle lobe status post irradiation and secondary presbyphagia. DYSPHAGIA ASSOCIATED MEDICAL CONSIDERATIONS / INTERVENTION CONSIDERATIONS: The Patient was noted to transiently aspirate with thin liquids (contrast briefly appearing below the vocal folds, though subsequently expelled back to the laryngeal vestibule during the act of deglutition). Recommend a repeat modified barium swallow study within 4 - 8 weeks (if clinically appropriate) if the Patient demonstrates independent completion of oropharyngeal swallow exercises outside of intervention sessions. Would consider the Patient to be at a higher risk of aspiration related medical complications / aspiration pneumonia / aspiration related pulmonary syndrome secondary to her recent irradiation therapy, presence of dysphagia, extensive pharyngeal phase impairment, potential for tracheobronchial aspiration of more dense viscosities, suboptimal oral status, advanced age, lower functional status, presence of malnutrition, and higher prevalence of comorbidities. Would consider this Patient to be a high risk for malnutrition and dehydration due to the Patients advanced age, reported significant amount of weight lost over the last 3 months (~25 lbs.), and the significance of dysphagia and motility based deficits. The Patient may require intervention to reduce the risk of malnutrition, with considerations for food enrichment and oral nutritional supplementation. Would recommend a nutritional services consultation due to the Patient and Patients caregiver concern associated with her ability to consistently and safely consume enough caloric intake to satisfy daily needs. INTERVENTION RECOMMENDATIONS AND CONSIDERATIONS: The Patient requires intensive skilled speech-language intervention targeting diet texture management and training / implementation of recommended compensatory strategies; training and implementation of recommended oropharyngeal strengthening exercises to facilitate improved oropharyngeal strength and coordination; and Patient / caregiver training targeting meal preparation / thickened liquid preparation. DIET TEXTURE RECOMMENDATIONS: Will recommend a pureed textured (IDDSI: 4), thin liquid diet (IDDSI: 0) diet RECOMMENDED COMPENSATORY STRATEGIES: Chin tuck, reduced bolus volume / rate of ingestion, consider cutting tougher textures into bite sized pieces, liquid chaser following semisolids, seated upright at 90 degrees during PO intake, remain upright for 30-60 minutes post meal (GERD precaution), medications crushed in purees. FUNCTIONAL OUTCOMES: OUTCOME 1: the Patient will tolerate the least restrictive means of nutrition to facilitate adequate hydration / nutrition with optimum safety and efficiency of swallowing function during P.O. intake without overt signs and symptoms of aspiration. OUTCOME 2: the Patient will demonstrate and utilize recommended compensatory swallowing techniques to facilitate improved airway protection and decreased risk for aspiration during PO intake. OUTCOME 3: The Patient will demonstrate and utilize recommended oropharyngeal strengthening exercises to facilitate improved oropharyngeal strength and coordination with minimal cueing and prompting provide by the clinician, across 2 out of 3 sessions. OUTCOME 4: The Patient will participate in a repeat Modified Barium Swallow (MBS) study to objectively assess the Patient?s oropharyngeal swallowing function (when clinically appropriate), to determine the least restrictive means of nutrition, and to identify appropriate intervention approaches / strategies to implement during treatment sessions at the supervised level. OUTCOME 5: goal adjustment as needed Herman Gates M.A., CCC-PARKS WORKER, CBIS MBSImP Certified, LSVT Certified [facility] Speech-Language Pathology Department [email or web address]
--- NOTE | 2019-03-18 20:09 | HP.SP.DC ---
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 Unfortunately the Patient on 01/15/2019. Will discharge from the speech-language pathology caseload at this time.
== END 2019-03-02 19:00 | disposition home or self-care (01) ==
LOC: SP 14:00
PROVIDERS: Family Provider Family Medicine; PCP Family Medicine; Referring Provider Student in an Organized Health Care Education/Training Program; Visit Provider Student in an Organized Health Care Education/Training Program
DX: R13.10 Dysphagia, unspecified (principal)
CPT/HCPCS: 92526; 92610

== ENCOUNTER → 2019-03-06 13:42 | Outpatient (CLI) | payer MEDICARE, SELFPAY ==
[2018-09-16 13:06] VITALS: BMI 29.0
[2019-03-05 09:25] VITALS: BMI 27.1
== END ==
PROVIDERS: Family Provider Family Medicine; PCP Family Medicine; Referring Provider Internal Medicine Hematology & Oncology; Visit Provider Internal Medicine Hematology & Oncology
DX: I99.8 Other disorder of circulatory system (principal); R09.89 Other specified symptoms and signs involving the circulatory and respiratory systems
CPT/HCPCS: 93931

== ENCOUNTER 2019-03-06 15:18 | Emergency (ER) | payer MEDICARE, SELFPAY ==
[2018-09-16 13:06] VITALS: BMI 29.0
[2019-03-05 09:25] VITALS: BMI 27.1
[2019-03-06 15:19] VITALS: BP 123/7; PULSE 99; RESP 17; TEMP 37.1; O2SAT 96; BMI 21.4
[2019-03-06 15:34] VITALS: BP 113/91; RESP 18
--- NOTE | 2019-03-06 15:50 | ED.VISSUMM ---
- ER Visit Summary Date of Service: 03/06/19 Chief Complaint: Chronic left hand tingling and coolness History of Present Illness: The patient is a 83 F history of lung CA stage IV with diffuse metastases. Also hypertension and hypothyroidism. Patient has had tingling and coolness in her left hand for months. That is not new. She denies any pain. Is not any worse. She has been given upper extremity ultrasound today ordered by her oncologist and it showed a radial artery clot. She denies any other symptoms. She is never had a DVT, PE or arterial clot before. Again her symptoms have been ongoing for months and have not changed. She is on no blood thinners. Physical Examination: Older female no acute distress. Coming by family. Vital signs are stable afebrile. HEENT exam unremarkable. Neck nontender. Lungs clear to auscultation bilaterally. Heart regular rhythm no murmur. Rate about 90. Abdomen is soft and nontender. Normal bowel sounds no peritoneal signs. Extremities moves all 4. Both hands are cool to the touch is not a significant difference. I cannot palpate a radial pulse on the left. But she has good collateral flow. She does have cap refill. She has normal touch sensation to her hands. She has normal motor strength 5 out of 5 to both hands. Test Results: Left upper extremity ultrasound that was ordered today as an outpatient shows a left radial arterial clot. That was done prior to her ER evaluation. This was ordered by her oncologist. Emergency Department Course and Treatment: I very spoken to her oncologist Dr. Sawyer. He states she has extensive metastasis of her lung CA. She would really not be much of a surgical candidate. He states if needed she could be placed on blood thinners. I have the vascular surgeon on page. I spoke with Dr. Knight vascular surgeon on-call for Dr. Valenzuela he and I discussed the patient's case. He wanted me to start her on Plavix daily and have her follow-up with their office. Treatment Plan: 75 mg of Plavix once a day. Follow-up with vascular surgery office. I did discuss with the patient and family that if she had any significant bruising, bleeding or head injury she need to return to ER to be evaluated. Disposition: Discharge Impression: Subacute left radial artery clot History of stage IV lung CA with metastases This note was generated with [employer] software. It may contain incorrect words, spelling, and punctuation that were not noted in review of the chart prior to signing ED Disposition - Plan for ED Patient: Referrals: Shorty Bauer MD [Primary Care Provider] -
--- NOTE | 2019-03-06 16:10 | ED.DEP ---
ED Disposition - Plan for ED Patient: Disposition: Home or Assisted Living Prescriptions: Clopidogrel Bisulfate [Plavix] 75 mg PO DAILY #30 tab Prescription Printed Referrals: Harrison Valenzuela MD [STAFF PHYSICIAN] - As soon as possible Additional Instructions: I spoke with her oncologist and 1 of the vascular he will be started on Plavix and a blood thinner 1 pill once a day. Call and follow-up with Dr. Harrison Valenzuela a vascular surgeon in the next week or so. The blood thinner he will be started on his Plavix. If you have any bad bleeding, bruising or head injury you need to return to be evaluated.
[2019-03-06 16:19] VITALS: BP 116/86; RESP 18
[2019-03-06] MEDS: Clopidogrel Bisulfate 75 MG Tablet PO (16:19)
== END 2019-03-06 16:22 | disposition home or self-care (01) ==
PROVIDERS: Emergency Provider Emergency Medicine; Family Provider Family Medicine; PCP Family Medicine
DX: I74.2 Embolism and thrombosis of arteries of the upper extremities (principal); C34.90 Malignant neoplasm of unspecified part of unspecified bronchus or lung; C79.9 Secondary malignant neoplasm of unspecified site; I10 Essential (primary) hypertension; E03.9 Hypothyroidism, unspecified; Z79.899 Other long term (current) drug therapy
CPT/HCPCS: 93931; 99283